=== PATIENT | female | born 1955 | race American Indian/Alaskan Native ===

== ENCOUNTER 2016-06-03 09:10 | Outpatient (CLI) | payer OTHER | END 2016-06-03 19:14 | disposition home or self-care (01) | LOC: MAMMO 09:10 | DX: Z12.31 Encounter for screening mammogram for malignant neoplasm of breast (principal) | CPT/HCPCS: G0202-TC ==

== ENCOUNTER 2019-03-20 13:34 | Outpatient (CLI) | payer OTHER | END 2019-03-20 20:17 | disposition home or self-care (01) | LOC: RAD 13:34 | DX: M89.8X8 Other specified disorders of bone, other site (principal); N95.8 Other specified menopausal and perimenopausal disorders ==